=== PATIENT | female | born 1950 | race Caucasian/White ===

== ENCOUNTER → 2017-03-16 | Outpatient (CLI) | payer BC ==
[~2017-03-16] MED LIST: BNC5 PO; HYDR-5688 PO
--- NOTE | 2017-03-19 13:17 | MAMMOGRAPHY REPORT ---
BILATERAL DIGITAL SCREENING MAMMOGRAM WITH CAD: 03/16/2017 CLINICAL HISTORY: Routine screening. Patient has no complaints. TECHNIQUE: Current study was also evaluated with a Computer Aided Detection (CAD) system. Bilateral CC and MLO views were obtained. COMPARISON: Comparison is made to exams dated: 03/14/2016 mammogram, 03/11/2015 mammogram, 03/10/2014 m ammogram, 03/05/2013 mammogram, 03/04/2012 mammogram, and 02/27/2011 mammogram - [facility] enter. BREAST COMPOSITION: There are scattered areas of fibroglandular density in both breasts. FINDINGS: There is a 10 mm mass seen within the right subareolar breast which may be increased dmitriy red to prior exams. Recommend spot compression tomosynthesis views and possible breast ultrasound fo r further evaluation. The remainder of both breasts are stable compared to prior exams, without suspicious masses, calcific ations, or areas of architectural distortion noted. IMPRESSION: ACR BI-RADS CATEGORY 0: INCOMPLETE EVALUATION: NEED ADDITIONAL IMAGING EVALUATION Right subareolar breast mass, for which additional imaging evaluation is recommended. The patient wi ll be called to schedule an appointment. Approximately 10% of breast cancers are not detected with mammography. A negative mammographic report should not delay biopsy if a clinically suggestive mass is present. Pearl Boyle M.D. /:03/16/2017 16:49:16 [employer] Supervisor: Brooke PASTOR(Keila)(Omar), [facility] letter sent: Addl Imaging 0 BI-RADS Code: ACR BI-RADS Category 0: Incomplete Evaluation: Need Additional Imaging Evaluation
== END | disposition home or self-care (01) ==
LOC: C.MAMM 09:14
PROVIDERS: ATTEND Obstetrics & Gynecology
DX: Z12.31 Encounter for screening mammogram for malignant neoplasm of breast (principal); N63 Unspecified lump in breast

== ENCOUNTER → 2017-03-26 | Outpatient (CLI) | payer BC ==
--- NOTE | 2017-03-26 13:13 | MAMMOGRAPHY REPORT ---
UNILATERAL RIGHT DIGITAL DIAGNOSTIC MAMMOGRAM TOMOSYNTHESIS AND TARGETED RIGHT ULTRASOUND: 03/26/2017 CLINICAL HISTORY: 66-year-old woman called back from screening mammography for a right subareolar otto ast mass. No family history of breast cancer. TECHNIQUE: Spot compression right CC and MLO 2-D digital and tomosynthesis images were obtained. COMPARISON: Comparison is made to exams dated: 03/16/2017 mammogram, 03/14/2016 mammogram, 03/11/2015 ma mmogram, 03/10/2014 mammogram, 03/05/2013 mammogram, and 03/04/2012 mammogram - [facility]ter. BREAST COMPOSITION: The tissue of the right breast is almost entirely fatty. FINDINGS: There is persistence of a 9.9 x 8.4 x 10.0 mm mass with indistinct borders in the anterior subareolar right breast. No associated architectural distortion or microcalcification. Further iam luation with ultrasound was performed. There are a few benign round calcifications and mild vascular calcifications within the right breast. Targeted ultrasound was performed in the anterior right breast. In the 12:00 periareolar/subareolar right breast, there is a lobulated vascular mass measuring 9.6 x 7.0 x 9.5 mm. In the antiradial niels ne, a tubular anechoic duct is seen coursing to and from this mass, suggesting it may be of intraduct al origin. Given the solid nature, definitive characterization with tissue sampling is recommended. IMPRESSION: ACR BI-RADS CATEGORY 4B: INTERMEDIATE SUSPICION FOR MALIGNANCY, TARGETED ULTRASOUND ACR BI-RADS CATEGORY 4B: INTERMEDIATE SUSPICION FOR MALIGNANCY Ultrasound-guided core biopsy is recommended for a possible intraductal 10 mm mass in the 12:00 peria reolar/subareolar right breast. These results and recommendations were discussed with the patient at the time of the exam. She tenta tively scheduled the biopsy prior to leaving our department. Approximately 10% of breast cancers are not detected with mammography. A negative mammographic report should not delay biopsy if a clinically suggestive mass is present. Emily Herzog M.D. ay/:03/26/2017 08:41:41 General Superintendent: Daisy Alvarenga, [facility] letter sent: Abnormal 4/5 BI-RADS Code: ACR BI-RADS Category 4B: Intermediate Suspicion For Malignancy Ultrasound BI-RADS: ACR BI-RADS Category 4B: Intermediate Suspicion For Malignancy
== END | disposition home or self-care (01) ==
LOC: C.MAMM 08:03
PROVIDERS: ATTEND Obstetrics & Gynecology
DX: N63 Unspecified lump in breast (principal)

== ENCOUNTER → 2017-04-03 | Outpatient (CLI) | payer BC ==
--- NOTE | 2017-04-03 09:37 | Discharge Instructions ---
Discharge Instructions Procedure Procedure Date: Apr 03, 2017. Reason for visit: Right Mass. Discharge Discharge Date: Apr 03, 2017. Discharge Diagnosis: post right breast ultrasound guided core biopsy Instructions Activity Recommendations: Additional Limitations (see below) Return to School/Work: no limitations Recommended Home Diet: No Limitations Provider Instructions: ACTIVITY RECOMMENDATIONS: * No lifting, pushing, pulling or exercising the affected side for three days. RETURN TO SCHOOL/WORK: * You may return to work/school after the procedure, but do not perform any strenuous activities for 24 to 48 hours. MEDICATIONS: * Tylenol (two 325 mg) every four to six hours if needed for mild pain (if not allergic to Tylenol). DIET: * Resume previous diet. SPECIAL CARE INSTRUCTIONS: * Keep biopsy site dry for 24 hours. May shower after 24 hours, but do not soak (bathe) incision. * May remove Tegaderm (plastic patch) tomorrow AFTER showering. * Leave the steri-strips on for one week. Allow the steri-strips to fall off by themselves. If not off after one week, you may remove them. You may place a Bandaid crosswise over the strips, if desired. * Apply ice 10 minutes on and 10 minutes off as needed. * Wear a bra at bedtime to sleep more comfortably for 2-3 days. * Your referring physician should have the results after approximately 5 to 7 business days. * Call for unusual bleeding, fever, drainage, etc or if you have any questions call [phone] during normal business hours or after hours call Dr Herzog, . FOLLOW UP VISIT: Follow-up with Referring Physician as scheduled. Allergies Coded Allergies: No Known Allergies (Unverified , 04/10/14) Ash Lundberg Recommendations: Call your doctor if: * Temperature above 101 degrees * Pain not relieved by pain medicine ordered * There is increased drainage or redness from any incision * You have any unanswered questions or concerns. Your Doctors Instructions noted above were prepared by provider Emily Herzog. Patient Signature Section: Patient Instructions Signature Page Nayeli ZamudioWallace Patient (or Guardian) Signature/Date: I have read and understand the instructions given to me by my caregivers. Caregiver/RN/Doctor Signature/Date: The above-named patient and/or guardian has received patient instructions on this date. + Original Patient Signature Page (only) stays with chart. Please make copy for patient.
--- NOTE | 2017-04-03 14:15 | MAMMOGRAPHY REPORT ---
UNILATERAL RIGHT DIGITAL DIAGNOSTIC MAMMOGRAM TOMOSYNTHESIS: 04/03/2017 CLINICAL HISTORY: Status post ultrasound-guided core needle biopsy of an indeterminate 9.6 mm mass in the 12:00 periareolar right breast. Please refer to the report from right breast ultrasound guided core biopsy performed at the same time for full detail. IMPRESSION: POST PROCEDURE IMAGING FOR MARKER PLACEMENT Please refer to the report from right breast ultrasound guided core biopsy performed at the same time for full detail. Approximately 10% of breast cancers are not detected with mammography. A negative mammographic report should not delay biopsy if a clinically suggestive mass is present. Emily Herzog M.D. ay/:04/03/2017 09:38:48 Quality Control Checker: Brooke ETIENNE)(M), [facility] BI-RADS Code: Post Procedure Imaging For Marker Placement
--- NOTE | 2017-04-03 14:15 | MAMMOGRAPHY REPORT ---
THIS REPORT HAS BEEN AMENDED. ULTRASOUND GUIDED BIOPSY RIGHT BREAST: 04/03/2017 CLINICAL HISTORY: Lobulated solid 9 mm mass in the subareolar/12:00 periareolar right breast. Rajat yu presents for ultrasound-guided core biopsy. COMPARISON: Comparison is made to exams dated: 03/26/2017 ultrasound, 03/26/2017 mammogram, 03/16/2017 m ammogram, 03/14/2016 mammogram, 03/11/2015 mammogram, and 03/10/2014 mammogram - [facility] enter. PATIENT CONSENT: The procedure, risks and benefits were discussed with the patient and informed writt en consent was obtained. Specific risks to this procedure include: bleeding, infection, puncture of a djacent structure, nontarget biopsy, sampling error, pain, metal allergy and medication reaction. PROCEDURE DESCRIPTION: A time out was performed and the right breast was agreed as the site of biopsy . The skin was prepped and draped in the usual sterile fashion. The solid mass in the 12:00 periareol ar right breast was chosen as the target for biopsy. Subcutaneous and intraparenchymal 1% buffered li docaine was administered as local anesthesia. A skin incision was made. Through the incision, 4 samp les were taken with a 14 gauge Achieve biopsy device. A metallic marker was placed at the biopsy site . Hemostasis was achieved after manual compression. The patient tolerated the procedure well and ther e was no immediate complication. The samples were sent to the pathology department in an appropriate ly labeled container. Post procedure right CC and ML tomosynthesis images were obtained. There is a new ribbon-shaped meta llic biopsy marker within the mass in the anterior 12:00 periareolar right breast. No significant po stbiopsy hematoma is seen. IMPRESSION: ULTRASOUND GUIDED BIOPSY Status post ultrasound guided core biopsy of an indeterminate solid mass in the 12:00 periareolar rig ht breast, with biopsy marker placed at the site. The patient will receive notification of the biopsy results from her referring physician. Emily Herzog M.D. ay/:04/03/2017 13:22:09 Robotic Machine Tender Production: Brooke ETIENNE)(Omar), [facility] AMENDMENT: 04/11/2017 Emily Herzog M.D. Pathology results from the ultrasound-guided core biopsy in the right 12:00 anterior breast yielded a n intraductal papillary lesion with abundant myoepithelial cells. Scattered microcalcifications note d. No areas worrisome for ADH, DCIS are identified. The pathology results are concordant with the i maging appearance. However, given that this mass had been increasing slowly mammographically, surgic al consultation for consideration of surgical excision is recommended.
== END | disposition home or self-care (01) ==
LOC: C.MAMM 08:33
PROVIDERS: ATTEND Obstetrics & Gynecology
DX: N60.81 Other benign mammary dysplasias of right breast (principal); R92.0 Mammographic microcalcification found on diagnostic imaging of breast

== ENCOUNTER → 2017-05-15 | Day surgery (SDC) | payer BC ==
[2017-04-27 13:34] VITALS: Ht 162.6 cm; Wt 63.6 kg
[~2017-05-15] VITALS: Ht 162.6 cm; Wt 63.6 kg
[~2017-05-15] MED LIST changes: +ATROPINE SULFATE 0.1 MG/ML 5ML SYR IV PRN; +BUPIVACAINE 0.5 % 5 MG/1 ML MPF 30ML VIAL ONE; +CEFAZOLIN 2000 MG/60 ML D5W IV SCH; +EpHEDrine SULFATE INJ 50 MG/ML AMP IV PRN; +FENTANYL CITRATE INJ 50 MCG/1 ML 2 ML VIAL IV PRN; +FENTANYL CITRATE INJ 50 MCG/1 ML 2 ML VIAL ONE; +HYDROCODONE/ACETAMOPHEN 5/325MG TAB PO PRN; +LACTATED RINGER'S 1000ML 1,000 ML IV SCH; +LIDOCAINE HCL 1% 20 ML VIAL ONE; +LIDOCAINE HCL 2% 2 ML VIAL (20MG/ML) ONE; +MIDAZOLAM HCL 1 MG/ML 2ML VIAL ONE; +ONDANSETRON INJ 2 MG/ML 2 ML VIAL IV PRN; +ONDANSETRON INJ 2 MG/ML 2 ML VIAL ONE; +PROPOFOL IV EMULSION 10 MG/ML 20 ML VIAL IV ONE; +SODIUM CHLORIDE 0.9% 1000ML 1,000 ML IV SCH
--- NOTE | 2017-05-15 11:57 | History & Physical Bridge - SC ---
H&P Re-Evaluation Bridge Note: I have examined the patient, reviewed the History & Physical and in the interval since the performance of the History & Physical I have noted the following changes of clinical significance: No changes noted
--- NOTE | 2017-05-15 12:01 | Discharge Instructions-SurgCtr ---
Discharge Instructions Date of Service May 15, 2017. Visit Reason for Visit: Right Breast Papilloma Discharge Discharge Diagnosis / Problem: papilloma Rt breast Discharge Goals Goal(s): Decrease discomfort, Improve function, Improve disease control Activity Recommendations Activity Limitations: as noted below Lifting Limitations: gradually increase as tolerated Exercise/Sports Limitations: until after follow-up appointment May Resume Sexual Activity: when tolerated Shower/Bathe: keep incision dry (for 2 days then may shower) Driving or Machine Use: resume 1 day after discharge SPECIAL CARE INSTRUCTIONS: * Cover incisions and change daily for comfort/drainage. * Leave steri strips in place * May use ibuprofen for pain as tolerated. * Expect some swelling and bruising. Call your doctor if: * Temperature above 101 degrees * Pain not relieved by pain medicine ordered * There is increased drainage or redness from any incision * You have any unanswered questions or concerns [phone]. FOLLOW UP VISIT: If not already scheduled, please call the office for a follow-up visit. for 2 weeks- no sutures to remove OFFICE PHONE NUMBER: Dr. Fleming Office Anesthesia . Post Anesthesia Instructions: If you have had General Anesthesia or IV Sedation: * Do not drive today. * Resume driving when surgeon permits. * Do not make important decisions or sign legal documents today. * Call surgeon for: 1. Temperature elevations greater than 101 degrees F. 2. Uncontrollable pain. 3. Excessive bleeding. 4. Persistent nausea and vomiting. 5. Medication intolerance (nausea, vomiting or rash). * For nausea and vomiting use only clear liquids such as: tea, soda, bouillon until nausea subsides, then gradually increase diet as tolerated. * If you have any concerns or questions, call your surgeon's office. If physician is unavailable and it is an emergency, call 911 or go to the nearest emergency room. . Diet Recommendations Home Diet: resume previous diet Pending Studies Studies pending at discharge: no Medical Emergencies . Who to Call and When: Medical Emergencies: If at any time you feel your situation is an emergency, please call 911 immediately. . Non-Emergent Contact Non-Emergency issues call your: Primary Care Provider, Surgeon . . "Provider Documentation" section prepared by Tavo Fleming. .
[2017-05-15 12:50] VITALS: TEMP 36.6
--- NOTE | 2017-05-15 13:10 | MAMMOGRAPHY REPORT ---
SPECIMEN: 05/15/2017 CLINICAL HISTORY: Specimen radiograph. Please refer to the report from right breast ultrasound performed at the same for full detail regardi ng skin marking prior to surgery. IMPRESSION: SPECIMEN Please refer to the report from right breast ultrasound performed at the same for full detail regardi ng skin marking prior to surgery. Emily Herzog M.D. ay/:05/15/2017 12:31:53 Machine Chocolate Molder: Daisy Alvarenga, [facility]
--- NOTE | 2017-05-15 13:10 | MAMMOGRAPHY REPORT ---
ULTRASOUND OF RIGHT BREAST: 05/15/2017 CLINICAL HISTORY: Biopsy proven papilloma in the 12:00 anterior subareolar right breast which had bee n slowly enlarging based on prior mammograms. Patient presents for surgical excision. COMPARISON: Comparison is made to exams dated: 04/03/2017 mammogram, 04/03/2017 ultrasound biopsy, 03/15 ultrasound, 03/26/2017 mammogram, 03/16/2017 mammogram, and 03/14/2016 mammogram - [facility]. FINDINGS: Prior to surgical excision of a biopsy proven papilloma in the 12:00 anterior subareolar r ight breast, targeted ultrasound was performed over the biopsied mass for skin marking purposes. Maggie otations were made on the right breast directly above the mass, which is located 1 cm deep to the ester mis. This information was discussed with the operating surgeon prior to surgery. The specimen radiograph demonstrates a lobulated mass and internal ribbon-shaped biopsy marker clip, compatible with successful surgical excision. IMPRESSION: Status post preoperative skin marking for localization purposes during surgical excision of a papillo ma in the 12:00 anterior right breast. The specimen radiograph includes the intended abnormalities. The patient will receive notification of final pathology results from her referring physician. Emily Herzog M.D. ay/:05/15/2017 12:35:06 Agronomy Internship: Daisy Alvarenga, [facility] BI-RADS Code: n/a
[2017-05-15 13:12] VITALS: BP 146/81; PULSE 60; O2SAT 100
--- NOTE | 2017-05-15 13:22 | Anesthesia Progress Nt - [facility] ---
Anesthesia Post Op Note Date & Time May 15, 2017 at 13:22 Vital Signs Pain Intensity: 0 Vital Signs Past 12 Hours Date Time Temp Pulse Resp B/P (MAP) Pulse Ox O2 Delivery O2 Flow Rate FiO2 05/15/17 13:12 60 16 146/81 (102) 100 Room Air 05/15/17 12:50 36.6 70 20 125/74 (91) 98 Room Air 05/15/17 10:33 36.7 70 16 177/88 (117) 99 Room Air Notes Mental Status: alert / awake / arousable, participated in evaluation Pt Amnestic to Procedure: Yes Nausea / Vomiting: adequately controlled Pain: adequately controlled Airway Patency, RR, SpO2: stable & adequate BP & HR: stable & adequate Hydration State: stable & adequate Anesthetic Complications: no major complications apparent
--- NOTE | 2017-05-15 13:48 | OPERATIVE REPORT ---
DATE OF OPERATION: 05/15/2017 NAME OF OPERATION: Excision of right breast mass. PREOPERATIVE DIAGNOSIS: Right breast mass. POSTOPERATIVE DIAGNOSIS: Same. STAFF SURGEON: Dr. Fleming. ANESTHESIA: 1% plain lidocaine with sedation. PROCEDURE IN DETAIL: The patient was brought in the operating room and placed on the operating table in supine position. Her right breast was prepped and draped in usual fashion. She had ultrasound marking in the breast center prior to coming to the operating room. Using 1% plain lidocaine, skin and subcutaneous tissue in the upper part of the right areola were anesthetized. Incision was made around the areola from approximately 10 o'clock to 2 o'clock, dissecting down into the breast tissue, excising the tissue, sending it for mammography. The tissue was marked with a long silk suture lateral, short silk suture superior. The clip was within the tissue. During the mammography, I did take additional superior tissue with blue dye on the new outer margin. Deep tissue was reapproximated using 2-0 plain catgut suture, then the skin reapproximated using subcuticular 5-0 Monocryl with Steri-Strips. The patient was transferred to recovery room in stable condition. I attest to the content of the Intraoperative Record and any orders documented therein. Any exception s are noted below.
== END | disposition home or self-care (01) ==
LOC: X.SURG 10:25
PROVIDERS: ATTEND Surgery
DX: D24.9 Benign neoplasm of unspecified breast (principal); I10 Essential (primary) hypertension; Z86.2 Personal history of diseases of the blood and blood-forming organs and certain disorders involving the immune mechanism; Z90.89 Acquired absence of other organs; Z82.49 Family history of ischemic heart disease and other diseases of the circulatory system; Z83.42 Family history of familial hypercholesterolemia; Z87.891 Personal history of nicotine dependence

== ENCOUNTER → 2017-06-29 | Outpatient (CLI) | payer BC ==
[~2017-06-29] MED LIST changes: -ATROPINE SULFATE 0.1 MG/ML 5ML SYR IV PRN; -BUPIVACAINE 0.5 % 5 MG/1 ML MPF 30ML VIAL ONE; -CEFAZOLIN 2000 MG/60 ML D5W IV SCH; -EpHEDrine SULFATE INJ 50 MG/ML AMP IV PRN; -FENTANYL CITRATE INJ 50 MCG/1 ML 2 ML VIAL IV PRN; -FENTANYL CITRATE INJ 50 MCG/1 ML 2 ML VIAL ONE; -HYDROCODONE/ACETAMOPHEN 5/325MG TAB PO PRN; -LACTATED RINGER'S 1000ML 1,000 ML IV SCH; -LIDOCAINE HCL 1% 20 ML VIAL ONE; -LIDOCAINE HCL 2% 2 ML VIAL (20MG/ML) ONE; -MIDAZOLAM HCL 1 MG/ML 2ML VIAL ONE; -ONDANSETRON INJ 2 MG/ML 2 ML VIAL IV PRN; -ONDANSETRON INJ 2 MG/ML 2 ML VIAL ONE; -PROPOFOL IV EMULSION 10 MG/ML 20 ML VIAL IV ONE; -SODIUM CHLORIDE 0.9% 1000ML 1,000 ML IV SCH
== END | disposition home or self-care (01) ==
LOC: C.PAPS 14:14
PROVIDERS: ATTEND Obstetrics & Gynecology
DX: Z12.4 Encounter for screening for malignant neoplasm of cervix (principal)

== ENCOUNTER → 2017-07-24 | Outpatient (CLI) | payer BC | END | disposition home or self-care (01) | LOC: C.MAMM 11:10 | PROVIDERS: ATTEND Family Medicine | DX: M85.80 Other specified disorders of bone density and structure, unspecified site (principal); E28.319 Asymptomatic premature menopause ==

== ENCOUNTER 2024-09-10 20:50 | Observation (INO) ==
--- NOTE | 2024-09-10 21:10 | Emergency Department Note ---
Impression & Plan Atrial fibrillation with rapid ventricular response ED Provider Note Provider: James Venegas MD CHIEF COMPLAINT: Palpitations HISTORY OF PRESENT ILLNESS: Patient is a 73-year-old female history of hypertension presenting here today with stating in the past hour she started feel palpitations and racing heart rate. States in the past maybe once a month she has had a few seconds of palpitations but nothing like this. No history of A-fib or arrhythmia noted. Has had some anxiety and hypertensive issues and her doctor to have her propranolol at 1 time. Patient denies chest pain or shortness of breath. Denies fainting or syncope. Denies trauma. Denies recent illness. Denies recent GI upset or significance of caffeine or alcohol in the recent days. There is a family history of son with A-fib improved with ablation in the past but no other family history of A-fib recollected by the patient. Patient denies any significant cardiac history PAST MEDICAL HISTORY: As noted above MEDICATIONS: Reviewed home medications SOCIAL HISTORY: , no regular alcohol use PHYSICAL EXAM: GENERAL: alert and oriented in no acute distress on stretcher Head: normocephalic and atraumatic EYES: No injection, discharge or icterus. NECK: Trachea midline. ENT: Mucous membranes pink and moist. LUNGS: Airway patent. No retractions. Breath sounds clear HEART: Tachycardic irregular regular rate and rhythm. No chest wall tenderness ABDOMEN: Soft and non-tender, without guarding or rebound. SKIN: Acyanotic, warm, dry, without rashes EXTREMITIES: Without swelling, tenderness or deformity NEUROLOGICAL: No focal deficits. No aphasia. No facial droop or slurred speech. Ambulatory. EK beats manage ablation at ventricular spots. No acute ST segment elevation with some diffuse slight ST depression. QTc 455. CONTINUOUS CARDIAC MONITORING: was ordered and showed a heart rate of bpm in atrial fibrillation Patient's laboratory studies and imaging reviewed. Differential includes Premature contractions, electrolyte abnormality, cardiac dysrhythmia, thyroid dysfunction, pulmonary embolism, infection, gastrointestinal, as well as other pathologies. IMPRESSION/MEDICAL DECISION MAKING: Sounds like new onset A-fib. In A-fib RVR. No significant stimulant usage or illness unsure what provoked this. Basic labs/electrolytes as well as COVID test and TSH sent. Given to metoprolol here initially to see if can affect some rate control. Not hypoxic and not having active chest pain although EKG does show some ST pression likely rate related. No evidence clinically of heart failure. Some rate control with several doses of IV metoprolol here but suboptimal. No significant lecture light abnormality signs of acute troponin elevation. No LFT abnormalities with troponin 6.3. Negative COVID flu RSV testing. No anemia or significant leukocytosis or thrombocytopenia noted. Unclear what exactly prompted her A-fib to start this evening. Difficult to rate control and will start on diltiazem drip as well as heparin drip for anticoagulation. Discussed with patient and given difficulty with rate control will bring into the hospital for further care and cardiac evaluation. Will discuss with the hospitalist team. DIAGNOSIS: A-fib RVRnew onset DISPOSITION: Hospitalist will evaluate Patient was agreeable with this plan. Critical Care I have personally spent 31 minutes of critical care time in the direct management of this patient. This includes bedside care, interpretation of diagnostic studies, and testing, discussion with consultants, patient, and other required patient management activities. These 31 minutes is in excess of all separately billable procedures. Past Med/Surg History Problem List (Updated 09/10/24 @ 21:14 by James Venegas M.D.) Atrial fibrillation with rapid ventricular response (Acute) Hematuria Abdominal pain (Acute) Appendicitis (Acute 04/11/14) Hyphema Medical History (Updated 09/10/24 @ 21:14 by James Venegas M.D.) History of anemia Hx of abnormal mammogram Surgical History S/P tonsillectomy and adenoidectomy H/O neck surgery S/P dilation and curettage S/P colonoscopy H/O breast surgery S/P appendectomy Family History Father Diabetes Dyslipidemia Hypertension Myocardial infarction Mother Hypertension Myocardial infarction Sister Hypertension Social History Smoking Status: Never smoker Do You Dip or Chew Tobacco: No; Preferred Language: Kittitian Feels Safe at Home: Yes Allergies Allergies Allergy/AdvReac Type Severity Reaction Status Date / Time lisinopril AdvReac Mild COUGH Verified 09/10/24 23:06 oxycodone AdvReac Mild SICK Verified 09/10/24 23:06 Home Meds Home Medications Medication Instructions Recorded Confirmed olmesartan 5 mg tablet 5 mg PO DAILY 07/09/19 09/10/24 rosuvastatin 10 mg tablet 5 mg PO DAILY 09/06/21 09/10/24 Results & Data (ED) Vital Signs Vital Signs - 24 hr 09/10/24 20:54 09/10/24 21:00 09/10/24 21:05 Temperature 36.5 C Temperature Source Temporal Artery Scan Pulse Rate 156 H 135 H Respiratory Rate 17 Blood Pressure 181/120 H Blood Pressure Mean 140 Pulse Oximetry 95 97 Oxygen Delivery Method Room Air Room Air Sepsis Recent Fever Within 48 Hours No Sepsis New/Unexplained Change in Mental Status No Sepsis Action Taken by Nursing No Action Required 09/10/24 21:15 09/10/24 21:30 09/10/24 22:02 Temperature Temperature Source Pulse Rate 152 H 120 H 122 H Respiratory Rate Blood Pressure 148/120 H 148/111 H 120/95 Blood Pressure Mean Pulse Oximetry Oxygen Delivery Method Sepsis Recent Fever Within 48 Hours Sepsis New/Unexplained Change in Mental Status Sepsis Action Taken by Nursing 09/10/24 22:17 09/10/24 22:20 09/10/24 22:45 Temperature Temperature Source Pulse Rate 125 H 123 H 123 H Respiratory Rate Blood Pressure 120/92 120/92 137/106 H Blood Pressure Mean Pulse Oximetry Oxygen Delivery Method Sepsis Recent Fever Within 48 Hours Sepsis New/Unexplained Change in Mental Status Sepsis Action Taken by Nursing Laboratory Data 09/10/24 21:05 09/10/24 21:05 Lab Results 09/10/24 09/10/24 Range/Units 21:05 21:24 WBC 9.18 (4.8-10.8) K/ul RBC 4.60 (4.20-5.40) M/uL Hgb 14.0 (12.0-16.0) g/dl Hct 41.4 (37.0-47.0) % MCV 90.0 (80.0-100.0) fL MCH 30.4 (25.0-34.0) pg MCHC 33.8 (32.0-36.0) g/dL RDW Std Deviation 38.5 (36.4-46.3) fL RDW Coeff of Rosie 11.9 (11.5-14.5) % Plt Count 245 (130-400) K/uL MPV 10.6 (9.4-12.4) fL Immature Gran % (Auto) 0.3 % Neut % (Auto) 57.8 % Lymph % (Auto) 28.4 % [place] % (Auto) 11.1 % Eos % (Auto) 1.4 % Baso % (Auto) 1.0 % Neut # (Auto) 5.30 (1.40-6.50) K/uL Lymph # (Auto) 2.61 (1.20-3.40) K/uL [place] # (Auto) 1.02 H (0.11-0.59) K/uL Eos # (Auto) 0.13 (0.00-0.50) K/uL Baso # (Auto) 0.09 (0.00-0.20) K/uL Immature Gran # (Auto) 0.03 (0.01-0.20) K/uL PT 11.4 (9.0-12.0) Seconds INR 1.1 (0.9-1.1) APTT 24 (21-31) Seconds PTT Ratio 0.9 Sodium 142 (136-145) mmol/L Potassium 3.8 (3.5-5.1) mmol/L Chloride 108 H (98-107) mmol/L Carbon Dioxide 25 (21-32) mmol/L Anion Gap 9 (3-11) BUN 20 (6-23) mg/dl Creatinine 0.67 (0.6-1.2) mg/dl Est Cr Clr Drug Dosing 70.3 ml/min eGFR 91.66 BUN/Creatinine Ratio 29.9 H (10-20) Glucose 139 H (70-99(Fasting)) mg/dl Calcium 10.0 (8.6-10.3) mg/dl Magnesium 2.3 (1.7-2.4) mg/dl Total Bilirubin 0.4 (0.2-1.0) mg/dl AST 21 (13-39) U/L ALT 15 (7-52) U/L Alkaline Phosphatase 77 (34-104) U/L Troponin I High Sens 6.0 (0-14) pg/ml Total Protein 8.2 (6.0-8.3) gm/dl Albumin 5.1 H (3.4-5.0) gm/dl Globulin 3.1 (2.5-4.0) gm/dl Albumin/Globulin Ratio 1.6 (0.9-2) TSH 6.336 H (0.300-4.500) uIu/ml Free T4 0.74 (0.61-1.60) ng/dl SARS-CoV-2 (PCR) NEGATIVE (Negative) Influenza Type A (PCR) Negative (Neg) Influenza Type B (PCR) Negative (Neg) RSV (RT-PCR) Negative (Neg) Administered Medications Diltiazem HCl 125 mg/ Dextrose 125 mls @ 5 mls/hr IV .Q24H [facility]; Protocol Stop: 10/10/24 22:44 Last Admin: 09/10/24 23:21 Dose: 5 mg/hr, 5 mls/hr Documented By: ANDRES Co-signed By: JULIA Heparin Sodium/Dextrose (Heparin Sodium/Dextrose) 25,000 units in 500 mls @ 14 mls/hr IV .Q24H [facility]; Protocol Stop: 10/10/24 23:14 Last Admin: 09/10/24 23:27 Dose: 700 units/hr, 14 mls/hr Documented By: ANDRES Co-signed By: JULIA Discontinued Medications Heparin Sodium (Porcine) (Heparin Sod (Porcine) 1000 Unit/Ml) 4,000 units IV NOW STA Stop: 09/10/24 23:12 Last Admin: 09/10/24 23:26 Dose: 4,000 units Documented By: ANDRES Co-signed By: JULIA Metoprolol Tartrate (Metoprolol Tartrate 1 Mg/Ml Vial) 5 mg IV NOW STA Stop: 09/10/24 21:09 Last Admin: 09/10/24 21:15 Dose: 5 mg Documented By: FRANK Metoprolol Tartrate (Metoprolol Tartrate 1 Mg/Ml Vial) 5 mg IV NOW STA Stop: 09/10/24 21:33 Last Admin: 09/10/24 22:02 Dose: 5 mg Documented By: FRANK Metoprolol Tartrate (Metoprolol Tartrate 1 Mg/Ml Vial) 5 mg IV NOW STA Stop: 09/10/24 22:14 Last Admin: 09/10/24 22:20 Dose: 5 mg Documented By: FRANK Imaging Data Radiologist's Impression: Chest X-Ray 09/10/24 21:09 Exam(s): XR CXR 1 VIEW EXAM: XR Chest, 1 View CLINICAL HISTORY: Reason for exam: Dysrhythmia, new Afib. TECHNIQUE: Frontal view of the chest. COMPARISON: December 22, 2023 FINDINGS: Lungs: Unremarkable. No consolidation. Pleural space: Unremarkable. No pneumothorax. Heart: Unremarkable. No cardiomegaly. Mediastinum: Unremarkable. Normal mediastinal contour. Bones/joints: Unremarkable. No acute fracture. IMPRESSION: Normal chest x-ray. Electronically signed by: Dane Becker MD 09/11/24 00:01 AM Discharge Plan Visit Data Chief Complaint: Cardiac Assessment Stated Complaint: RACING HEART, IRREGULAR HEART BEAT ED Provider: James Venegas Discharge Problem: Atrial fibrillation with rapid ventricular response Forms Stand Alone [facility] Prescriptions Prescriptions: No Action olmesartan 5 mg tablet 5 mg PO DAILY rosuvastatin 10 mg tablet 5 mg PO DAILY Referrals Referrals: Julius Vargas MD [Primary Care Provider] -
[2024-09-10] MEDS: METOPROLOL TARTRATE 1 MG/ML VIAL IV STA ×3 (21:15→22:20)
[2024-09-10 21:30] LABS: Basophils # (auto) 0.09 K/uL (0.00-0.20); Eosinophils # (auto) 0.13 K/uL (0.00-0.50); Eosinophils % (auto) 1.4 %; Hematocrit (blood only) 41.4 % (37.0-47.0); Immature Granulocytes # (auto) 0.03 K/uL (0.01-0.20); Immature Granulocytes % (auto) 0.3 %; Lymphocytes # (auto) 2.61 K/uL (1.20-3.40); Lymphocytes % (auto) 28.4 %; Mean Corpuscular Hemoglobin 30.4 pg (25.0-34.0); Mean Corpuscular Hgb Conc 33.8 g/dL (32.0-36.0); Mean Platelet Volume 10.6 fL (9.4-12.4); Monocytes # (auto) 1.02 K/uL (0.11-0.59); Monocytes % (auto) 11.1 %; Neutrophils % (auto) 57.8 %; Platelet Count 245 K/uL (130-400); RDW Coefficient of Variation 11.9 % (11.5-14.5); RDW Standard Deviation 38.5 fL (36.4-46.3); White Blood Count 9.18 K/ul (4.8-10.8)
[2024-09-10 21:41] LABS: Albumin Globulin Ratio 1.6 (0.9-2); Albumin Level 5.1 gm/dl (3.4-5.0); BUN Creatinine Ratio 29.9 (10-20); Bilirubin,Total 0.4 mg/dl (0.2-1.0); Creatinine Clr Calc Pharmacy 70.3 ml/min; Globulin 3.1 gm/dl (2.5-4.0); Magnesium 2.3 mg/dl (1.7-2.4); Potassium 3.8 mmol/L (3.5-5.1); Total Protein 8.2 gm/dl (6.0-8.3)
[2024-09-10 21:58] LABS: Thyroid Stimulating Hormone 6.336 uIu/ml (0.300-4.500)
[2024-09-10 21:59] LABS: INR 1.1 (0.9-1.1); Partial Thromboplastin Ratio 0.9; Partial Thromboplastin Time 24 Seconds (21-31); Prothrombin Time 11.4 Seconds (9.0-12.0)
[2024-09-10 22:12] LABS: Influenza A virus by PCR Negative (Neg); Influenza B virus by PCR Negative (Neg); RSV by PCR Negative (Neg); SARS CoV2 RNA(COVID-19) Ceph NEGATIVE (Negative)
[2024-09-10 22:33] LABS: T4 Free Thyroxine 0.74 ng/dl (0.61-1.60)
[2024-09-10] MEDS ORDERED: STAT IV Infusion **Titration per Protocol STA (22:45)
[2024-09-10] MEDS ORDERED: Heparin IV Adult Wt-Based Low-Dose w/ INITIAL Bolus Protocol IV STA (22:45)
[2024-09-10] MEDS ORDERED: HEPARIN SOD (PORCINE) 1000 UNIT/ML IV ONE (23:01)
[2024-09-10] MEDS: dilTIAZem HCL 125 MG in DEXTROSE 5% 100 ML IV SCH (23:21)
[2024-09-10] MEDS: HEPARIN SOD (PORCINE) 1000 UNIT/ML IV STA (23:26)
[2024-09-10] MEDS: HEPARIN SODIUM/DEXTROSE 25,000 UNITS/500 ML BAG IV SCH (23:27)
--- NOTE | 2024-09-10 23:58 | History & Physical Report ---
Date of Service September 10, 2024 History of Present Illness Primary Care Provider: Julius Vargas MD Allergies Allergy/AdvReac Type Severity Reaction Status Date / Time lisinopril AdvReac Mild COUGH Verified 09/10/24 23:06 oxycodone AdvReac Mild SICK Verified 09/10/24 23:06 Home Medications Medication Instructions Recorded Confirmed Type olmesartan 5 mg tablet 5 mg PO DAILY 07/09/19 09/10/24 History rosuvastatin 10 mg tablet 5 mg PO DAILY 09/06/21 09/10/24 History Past Med/Surg History Problem List (Updated 09/10/24 @ 21:14 by James Venegas M.D.) Atrial fibrillation with rapid ventricular response (Acute) Hematuria Abdominal pain (Acute) Appendicitis (Acute 04/11/14) Hyphema Medical History (Updated 09/10/24 @ 21:14 by James Venegas M.D.) History of anemia Hx of abnormal mammogram Surgical History S/P tonsillectomy and adenoidectomy H/O neck surgery S/P dilation and curettage S/P colonoscopy H/O breast surgery S/P appendectomy Family History Father Diabetes Dyslipidemia Hypertension Myocardial infarction Mother Hypertension Myocardial infarction Sister Hypertension Social History Smoking Status: Never smoker Do You Dip or Chew Tobacco: No; Preferred Language: Greek Feels Safe at Home: Yes Results & Data Results & Data Vital Signs (Past 12 Hours) Vital Signs Temp Pulse Resp BP Pulse Ox O2 Del Method 09/10/24 22:45 123 H 137/106 H 09/10/24 22:20 123 H 120/92 09/10/24 22:17 125 H 120/92 09/10/24 22:02 122 H 120/95 09/10/24 21:30 120 H 148/111 H 09/10/24 21:15 152 H 148/120 H 09/10/24 21:05 135 H 09/10/24 21:00 97 Room Air 09/10/24 20:54 36.5 C 156 H 17 181/120 H 95 Room Air Code Status & VTE Plan VTE Prophylaxis Plan VTE Prophylaxis will be ordered: Yes PG Care Time/CCT Total # of Minutes Spent Total Time Spent with Patient: Total time spent is greater than 50% in coordination of care (as documented) at patient's floor/unit and/or counseling patient: Coding Level of Care Code 00589 INT INP/OBS CARE 3/75MIN
--- NOTE | 2024-09-10 23:59 | History & Physical Report ---
Date of Service September 10, 2024 Assessment & Plan (1) Atrial fibrillation with rapid ventricular response: (2) Hypertension: (3) Hyperlipidemia: (4) Hyperglycemia: Plan Atrial fibrillation with RVR/hypertension- The patient will be admitted to telemetry for serial cardiac enzymes, serial EKG's, cardiac rhythm monitoring and a 2-D echocardiogram with Dopplers. Status post Lopressor 5 mg IV x 3 from the ED with no significant improvement Then placed on Cardizem drip per protocol Cardizem 30 mg p.o. now, and then 4 times daily Given Klor-Con 40 mEq p.o. for potassium 3.8 Heparin drip per protocol Hold olmesartan Consult cardiology Hyperglycemia- Glucose 139 on admission Check hemoglobin A1c Hyperlipidemia- Continue rosuvastatin 5 mg daily Check a fasting lipid panel History of Present Illness Chief Complaint: The patient presents to the emergency department, with her , due to sudden onset of persistent palpitations that began about 1 hour prior to arrival. Primary Care Provider: Julius Vargas MD The patient is a 73-year-old female with a past medical history including hypertension and hyperlipidemia, who reports having had a few episodes of brief palpitations of a few seconds duration in the past. She reports that about 1 hour prior to arrival, she had the acute onset of persistent palpitations, and presents to the ED for assessment. EKG upon arrival showed atrial fibrillation with RVR at a rate 153 bpm. She denies any recent travels or sick exposures. She denies any change in her usual dietary intake. Allergies Allergy/AdvReac Type Severity Reaction Status Date / Time lisinopril AdvReac Mild COUGH Verified 09/10/24 23:06 oxycodone AdvReac Mild SICK Verified 09/10/24 23:06 Home Medications Medication Instructions Recorded Confirmed Type olmesartan 5 mg tablet 5 mg PO DAILY 07/09/19 09/10/24 History rosuvastatin 10 mg tablet 5 mg PO DAILY 09/06/21 09/10/24 History Past Med/Surg History Problem List (Updated 09/11/24 @ 04:39 by Jan Rebolledo MD) Hyperglycemia Atrial fibrillation with rapid ventricular response (Acute) Hematuria Abdominal pain (Acute) Appendicitis (Acute 04/11/14) Hyphema Medical History (Updated 09/11/24 @ 04:39 by Jan Rebolledo MD) Hyperlipidemia History of anemia Hx of abnormal mammogram Surgical History S/P tonsillectomy and adenoidectomy H/O neck surgery S/P dilation and curettage S/P colonoscopy H/O breast surgery S/P appendectomy Family History Father Diabetes Dyslipidemia Hypertension Myocardial infarction Mother Hypertension Myocardial infarction Sister Hypertension Social History Smoking Status: Unknown if ever smoked Do You Dip or Chew Tobacco: No; Hx Alcohol Use: Yes Alcohol type: wine Hx Substance Use: No Preferred Language: Croatian Communication Ability: Effective Nib Inspector Required: No Beliefs That Will Affect Care: None Current Living Situation: Spouse Other Information That Helps Us Care for You: No Feels Safe at Home: Yes Safety Concerns: Feels Safe At This Time Assistive Devices: Glasses Assistive Devices Comment: reading glasses Review of Systems Review of Systems: The patient denies chest pain, cough, lower extremity swelling, sore throat, fevers, chills, sweats, weight change, fatigue, nausea, vomiting, diarrhea , constipation, abdominal pain, pelvic pain, blood in urine or stool, dysuria, urinary frequency or urgency, lightheadedness, dizziness, headache, memory loss, loss of consciousness, rash, abnormal bruising or bleeding, imbalance, focal or generalized weakness, numbness or tingling in arms or legs, generalized arthralgias or myalgias, back or neck pain, or night sweats. The review of systems is otherwise negative other than for that already noted above, and at least 10 systems have been reviewed. Physical Exam Physical Exam: The patient is awake, alert and oriented 3, well developed and well nourished, normocephalic and atraumatic, lying in bed and in no acute distress. HEENT--PERRL, EOMI, mucous membranes and oropharynx normal Neck--supple. No JVD. No bruits. Thyroid normal, trachea midline, no adenopathy. Heart--irregularly irregular and tachycardic. No murmurs, rubs or gallops. Lungs--clear bilaterally, no respiratory distress, no accessory muscle use. Abdomen--normal bowel sounds and soft. Nontender. Nondistended, no hernias or masses, no organomegaly. Extremities--No edema. Dermatologic--normal skin turgor, normal color, no abnormal lymph nodes, no rash. Neurologic--cranial nerves II through XII grossly intact. Rheumatologic--normal range of motion. Psychiatric--normal affect. Results & Data Results & Data Vital Signs (Past 12 Hours) Vital Signs Temp Pulse Resp BP Pulse Ox O2 Del Method 09/10/24 22:45 123 H 137/106 H 09/10/24 22:20 123 H 120/92 09/10/24 22:17 125 H 120/92 09/10/24 22:02 122 H 120/95 09/10/24 21:30 120 H 148/111 H 09/10/24 21:15 152 H 148/120 H 09/10/24 21:05 135 H 09/10/24 21:00 97 Room Air 09/10/24 20:54 36.5 C 156 H 17 181/120 H 95 Room Air Laboratory Results Laboratory Results WBC 9.18 K/ul (4.8-10.8) 09/10/24 21:05 RBC 4.60 M/uL (4.20-5.40) 09/10/24 21:05 Hgb 14.0 g/dl (12.0-16.0) 09/10/24 21:05 Hct 41.4 % (37.0-47.0) 09/10/24 21:05 MCV 90.0 fL (80.0-100.0) 09/10/24 21:05 MCH 30.4 pg (25.0-34.0) 09/10/24 21:05 MCHC 33.8 g/dL (32.0-36.0) 09/10/24 21:05 RDW Std Deviation 38.5 fL (36.4-46.3) 09/10/24 21:05 RDW Coeff of Rosie 11.9 % (11.5-14.5) 09/10/24 21:05 Plt Count 245 K/uL (130-400) 09/10/24 21:05 MPV 10.6 fL (9.4-12.4) 09/10/24 21:05 Immature Gran % (Auto) 0.3 % 09/10/24 21:05 Neut % (Auto) 57.8 % 09/10/24 21:05 Lymph % (Auto) 28.4 % 09/10/24 21:05 [place] % (Auto) 11.1 % 09/10/24 21:05 Eos % (Auto) 1.4 % 09/10/24 21:05 Baso % (Auto) 1.0 % 09/10/24 21:05 Neut # (Auto) 5.30 K/uL (1.40-6.50) 09/10/24 21:05 Lymph # (Auto) 2.61 K/uL (1.20-3.40) 09/10/24 21:05 [place] # (Auto) 1.02 K/uL (0.11-0.59) H 09/10/24 21:05 Eos # (Auto) 0.13 K/uL (0.00-0.50) 09/10/24 21:05 Baso # (Auto) 0.09 K/uL (0.00-0.20) 09/10/24 21:05 Immature Gran # (Auto) 0.03 K/uL (0.01-0.20) 09/10/24 21:05 PT 11.4 Seconds (9.0-12.0) 09/10/24 21:05 INR 1.1 (0.9-1.1) 09/10/24 21:05 APTT 24 Seconds (21-31) 09/10/24 21:05 PTT Ratio 0.9 09/10/24 21:05 Sodium 142 mmol/L (136-145) 09/10/24 21:05 Potassium 3.8 mmol/L (3.5-5.1) 09/10/24 21:05 Chloride 108 mmol/L (98-107) H 09/10/24 21:05 Carbon Dioxide 25 mmol/L (21-32) 09/10/24 21:05 Anion Gap 9 (3-11) 09/10/24 21:05 BUN 20 mg/dl (6-23) 09/10/24 21:05 Creatinine 0.67 mg/dl (0.6-1.2) 09/10/24 21:05 Est Cr Clr Drug Dosing 70.3 ml/min 09/10/24 21:05 eGFR 91.66 09/10/24 21:05 BUN/Creatinine Ratio 29.9 (10-20) H 09/10/24 21:05 Glucose 139 mg/dl (70-99(Fasting)) H 09/10/24 21:05 Calcium 10.0 mg/dl (8.6-10.3) 09/10/24 21:05 Magnesium 2.3 mg/dl (1.7-2.4) 09/10/24 21:05 Total Bilirubin 0.4 mg/dl (0.2-1.0) 09/10/24 21:05 AST 21 U/L (13-39) 09/10/24 21:05 ALT 15 U/L (7-52) 09/10/24 21:05 Alkaline Phosphatase 77 U/L (34-104) 09/10/24 21:05 Troponin I High Sens 6.0 pg/ml (0-14) 09/10/24 21:05 Total Protein 8.2 gm/dl (6.0-8.3) 09/10/24 21:05 Albumin 5.1 gm/dl (3.4-5.0) H 09/10/24 21:05 Globulin 3.1 gm/dl (2.5-4.0) 09/10/24 21:05 Albumin/Globulin Ratio 1.6 (0.9-2) 09/10/24 21:05 TSH 6.336 uIu/ml (0.300-4.500) H 09/10/24 21:05 Free T4 0.74 ng/dl (0.61-1.60) 09/10/24 21:05 SARS-CoV-2 (PCR) NEGATIVE (Negative) 09/10/24 21:24 Influenza Type A (PCR) Negative (Neg) 09/10/24 21:24 Influenza Type B (PCR) Negative (Neg) 09/10/24 21:24 RSV (RT-PCR) Negative (Neg) 09/10/24 21:24 Impressions Chest X-Ray 09/10/24 21:09 Exam(s): XR CXR 1 VIEW EXAM: XR Chest, 1 View CLINICAL HISTORY: Reason for exam: Dysrhythmia, new Afib. TECHNIQUE: Frontal view of the chest. COMPARISON: December 22, 2023 FINDINGS: Lungs: Unremarkable. No consolidation. Pleural space: Unremarkable. No pneumothorax. Heart: Unremarkable. No cardiomegaly. Mediastinum: Unremarkable. Normal mediastinal contour. Bones/joints: Unremarkable. No acute fracture. IMPRESSION: Normal chest x-ray. Electronically signed by: Dane Becker MD 09/11/24 00:01 AM Code Status & VTE Plan Code Status Full code VTE Prophylaxis Plan VTE Prophylaxis will be ordered: Yes PG Care Time/CCT Total # of Minutes Spent Total Time Spent with Patient: Total time spent is greater than 50% in coordination of care (as documented) at patient's floor/unit and/or counseling patient: Coding Level of Care Code 43977 INT INP/OBS CARE 3/75MIN Diagnoses Atrial fibrillation with rapid ventricular response I48.91 Hypertension I10 Hyperlipidemia E78.5 Hyperglycemia R73.9
--- NOTE | 2024-09-11 00:03 | XRay Report ---
Exam(s): XR CXR 1 VIEW EXAM: XR Chest, 1 View CLINICAL HISTORY: Reason for exam: Dysrhythmia, new Afib. TECHNIQUE: Frontal view of the chest. COMPARISON: December 22, 2023 FINDINGS: Lungs: Unremarkable. No consolidation. Pleural space: Unremarkable. No pneumothorax. Heart: Unremarkable. No cardiomegaly. Mediastinum: Unremarkable. Normal mediastinal contour. Bones/joints: Unremarkable. No acute fracture. IMPRESSION: Normal chest x-ray. Electronically signed by: Dane Becker MD 09/11/24 00:01 AM
[2024-09-11] MEDS: dilTIAZem HCL 30 MG TAB PO ONE (00:22)
[2024-09-11] MEDS: POTASSIUM CHLORIDE CRTAB 20 MEQ TABCR PO STA (00:22)
[2024-09-11 00:27] VITALS: RESP 18
[2024-09-11] MEDS ORDERED: ACETAMINOPHEN 325 MG TAB PO PRN (01:51)
[2024-09-11 02:17] VITALS: TEMP 98.1; O2SAT 97
[2024-09-11 05:48] LABS: Basophils # (auto) 0.06 K/uL (0.00-0.20); Basophils % (auto) 0.7 %; Eosinophils # (auto) 0.07 K/uL (0.00-0.50); Eosinophils % (auto) 0.9 %; Immature Granulocytes # (auto) 0.04 K/uL (0.01-0.20); Immature Granulocytes % (auto) 0.5 %; Lymphocytes # (auto) 2.46 K/uL (1.20-3.40); Mean Corpuscular Hgb Conc 34.2 g/dL (32.0-36.0); Mean Corpuscular Volume 90.5 fL (80.0-100.0); Mean Platelet Volume 10.6 fL (9.4-12.4); Monocytes # (auto) 0.84 K/uL (0.11-0.59); Monocytes % (auto) 10.2 %; Neutrophils # (auto) 4.74 K/uL (1.40-6.50); Neutrophils % (auto) 57.7 %; Platelet Count 234 K/uL (130-400); RDW Standard Deviation 39.7 fL (36.4-46.3); White Blood Count 8.21 K/ul (4.8-10.8)
[2024-09-11 05:55] LABS: Albumin Level 4.3 gm/dl (3.4-5.0); BUN Creatinine Ratio 26.2 (10-20); Calcium 9.4 mg/dl (8.6-10.3); Chol HDL Ratio 2.5 (0-5); Creatinine Clr Calc Pharmacy 72.6 ml/min; Magnesium 2.3 mg/dl (1.7-2.4); Phosphorus 3.6 mg/dl (2.5-4.9); Potassium 4.3 mmol/L (3.5-5.1)
[2024-09-11 06:03] LABS: ANTI-Xa, UFH(UnfractionatedHep 0.39 IU/ml (0.3-0.7)
[2024-09-11 07:29] LABS: Estimated Average Glucose 108 mg/dl; Hemoglobin A1C 5.4 % (4.5-5.6)
[2024-09-11 08:15] VITALS: BP 148/79
[2024-09-11] MEDS: dilTIAZem HCL 30 MG TAB PO SCH (08:56)
[2024-09-11] MEDS: ROSUVASTATIN CALCIUM 5 MG TAB PO SCH (08:57)
--- NOTE | 2024-09-11 09:55 | Cardiology Consultation ---
Date of Consultation September 11, 2024 Assessment & Plan (1) Atrial fibrillation with rapid ventricular response: (2) Anticoagulant long-term use: (3) Hyperlipidemia: (4) Hypertension: Plan 1. Paroxysmal atrial fibrillation: By symptoms she has had atrial fibrillation for the last year, this is the longest episode she has had and therefore she came into the emergency room where it was documented. She converted spontaneously to sinus rhythm in less than 12 hours. I discussed various approaches with her which include rate control, antiarrhythmic therapy and ablation. At this point my recommendation would be a trial of rate control although she will probably still have a somewhat fast heart rate but she tolerates it relatively well and as long as she feels good with it that was probably acceptable. I would recommend sending her home on long-acting diltiazem 180 mg and we can adjust as an outpatient. Since her blood pressure has often been elevated here I would add this to her regimen. She will need anticoagulation. 2. Anticoagulation: Her [id number] score is 3 currently, but she will be getting another point in a few months for age and should be on an anticoagulant. I discussed this with her and she is agreeable, she is concerned about the cost but she will have to evaluate that with her insurance company. I would recommend Eliquis 5 mg twice a day. Since she was in this rhythm for less than 12 hours it should be safe to stop the heparin and have her start the Eliquis when she gets the prescription filled, probably tomorrow. 3. Hypertension: Often her blood pressure is elevated here and has been in the past as well on our records. She may need better blood pressure control in general so adding diltiazem to her omeprazole is probably the best option. These can be adjusted as an outpatient, I would favor going up on the diltiazem empirically as an outpatient since she will probably need higher doses for heart rate control and atrial fibrillation. 4. Hyperlipidemia: She is on rosuvastatin, I believe 5 mg daily, and her lipid profile here is quite good (total cholesterol 150 with HDL 60, for a non-HDL cholesterol of 90) which is acceptable without documentation of atherosclerosis. I will make arrangements to have her seen in our office in about 1 month. History of Present Illness Reason for Consultation: New onset atrial fibrillation Attending Physician: Michel Damon History of Present Illness This is a 73-year-old woman with a history of hypertension, hyperlipidemia and hyperglycemia on this admission but no other cardiovascular history until recently. She describes feeling a rapid and irregular heart rate periodically for most of 2023, it is relatively infrequent and the symptoms were not lasting very long (a few hours at the most) so they had not been evaluated. She had a prolonged episode and presented with a feeling of an increased heart rate and palpitations occurring around 8 PM on May 10, 2024. She did not have lightheadedness or dizziness, she did not have heart failure symptoms or chest discomfort. In general she is very active and has not had cardiovascular symptoms with activity. An electrocardiogram demonstrated atrial fibrillation with a rapid heart rate of 153 bpm. She was treated with intravenous metoprolol followed by a diltiazem drip as well as oral short acting diltiazem and was placed on heparin. Her arrhythmia terminated at around 7 AM this morning (duration less than 12 hours) and at the time of my evaluation she was feeling well. Her heart rate prior to termination on diltiazem was somewhat elevated, her sinus rate was controlled. High- sensitivity troponin and other laboratory studies were unremarkable. An echocardiogram has been done by her description but has not been read as yet. Allergies Allergy/AdvReac Type Severity Reaction Status Date / Time lisinopril AdvReac Mild COUGH Verified 09/10/24 23:06 oxycodone AdvReac Mild SICK Verified 09/10/24 23:06 Home Medications Medication Instructions Recorded Confirmed Type olmesartan 5 mg tablet 5 mg PO DAILY 07/09/19 09/10/24 History rosuvastatin 10 mg tablet 5 mg PO DAILY 09/06/21 09/10/24 History apixaban 5 mg tablet (Eliquis) 5 mg PO BID #60 tabs 09/11/24 Rx diltiazem HCl 180 mg 180 mg PO DAILY #30 caps 09/11/24 Rx capsule,extended release 24 hr Patient History Medical History (Updated 09/11/24 @ 13:01 by Alban Pina MD) History of anemia Hx of abnormal mammogram Surgical History S/P tonsillectomy and adenoidectomy H/O neck surgery S/P dilation and curettage S/P colonoscopy H/O breast surgery S/P appendectomy Family History Father Diabetes Dyslipidemia Hypertension Myocardial infarction Mother Hypertension Myocardial infarction Sister Hypertension Social History Smoking Status: Unknown if ever smoked Do You Dip or Chew Tobacco: No; Hx Alcohol Use: Yes Alcohol type: wine Hx Substance Use: No Preferred Language: Slovak Communication Ability: Effective Diamond Merchant Required: No Beliefs That Will Affect Care: None Current Living Situation: Spouse Other Information That Helps Us Care for You: No Feels Safe at Home: Yes Safety Concerns: Feels Safe At This Time Assistive Devices: Glasses Assistive Devices Comment: reading glasses Review of Systems Review of Systems: All systems reviewed & are unremarkable except as noted in HPI & below Physical Exam Physical Exam: Constitutional: Alert, cooperative and in no distress. HEENT: Unremarkable Neck: No jugular venous distention, carotid pulses are normal and equal bilaterally without bruits. Pulmonary: Clear to auscultation bilaterally. Cardiac: Regular rhythm with no murmur, gallop or rub. Abdomen: Soft, nontender with normal bowel sounds. Extremities: No edema. Distal pulses intact. Neurologic: No focal findings. Gait is steady. Skin: No rash, ecchymoses or petechiae. Results & Data Vital Signs (Past 12 Hours) Vital Signs Temp Pulse Pulse Resp BP BP Pulse Ox 09/11/24 08:14 36.7 C 72 18 148/79 H 97 09/11/24 01:45 36.7 C 109 H 18 129/88 97 09/11/24 01:23 36.6 C 106 H 18 156/124 H 96 09/11/24 00:00 125 H 18 129/93 98 09/10/24 22:45 123 H 137/106 H 09/10/24 22:20 123 H 120/92 09/10/24 22:17 125 H 120/92 09/10/24 22:02 122 H 120/95 O2 Del Method 09/11/24 08:14 Room Air 09/11/24 01:45 Room Air 09/11/24 01:23 Room Air 09/11/24 00:00 Room Air 09/10/24 22:45 09/10/24 22:20 09/10/24 22:17 09/10/24 22:02 Laboratory Results Cardiac Enzymes 09/10/24 Range/Units 21:05 AST 21 (13-39) U/L Troponin I High Sens 6.0 (0-14) pg/ml Coagulation 09/10/24 Range/Units 21:05 PT 11.4 (9.0-12.0) Seconds APTT 24 (21-31) Seconds Lipids 09/11/24 Range/Units 05:20 Triglycerides 56 (0-150) mg/dl Cholesterol 150 (0-200) mg/dl HDL Cholesterol 60 mg/dl Cholesterol/HDL Ratio 2.5 (0-5) CBC 09/10/24 09/11/24 Range/Units 21:05 05:20 WBC 9.18 8.21 (4.8-10.8) K/ul RBC 4.60 4.20 (4.20-5.40) M/uL Hgb 14.0 13.0 (12.0-16.0) g/dl Hct 41.4 38.0 (37.0-47.0) % Plt Count 245 234 (130-400) K/uL Neut # (Auto) 5.30 4.74 (1.40-6.50) K/uL Lymph # (Auto) 2.61 2.46 (1.20-3.40) K/uL [place] # (Auto) 1.02 H 0.84 H (0.11-0.59) K/uL Eos # (Auto) 0.13 0.07 (0.00-0.50) K/uL Baso # (Auto) 0.09 0.06 (0.00-0.20) K/uL Comprehensive Metabolic Panel 09/10/24 09/11/24 Range/Units 21:05 05:20 Sodium 142 141 (136-145) mmol/L Potassium 3.8 4.3 (3.5-5.1) mmol/L Chloride 108 H 109 H (98-107) mmol/L Carbon Dioxide 25 27 (21-32) mmol/L BUN 20 17 (6-23) mg/dl Creatinine 0.67 0.65 (0.6-1.2) mg/dl Glucose 139 H 109 H (70-99(Fasting)) mg/dl Calcium 10.0 9.4 (8.6-10.3) mg/dl AST 21 (13-39) U/L ALT 15 (7-52) U/L Alkaline Phosphatase 77 (34-104) U/L Total Protein 8.2 (6.0-8.3) gm/dl Albumin 5.1 H 4.3 (3.4-5.0) gm/dl Intake and Output 09/10/24 09/11/24 09/11/24 22:59 06:59 14:59 Intake Total 127.334 / 127.334 Balance 127.334 / 127.334 Intake: IV 127.334 / 127.334 Heparin Sodium/Dextrose 25,000 102.667 / 102.667 units In 500 ml @ 700 UNITS/HR 14 mls/hr IV .Q24H MACHO Rx#: [id number] dilTIAZem HCL 125 mg In 24.667 / 24.667 Dextrose 5% 100 ml @ 5 MG/HR 5 mls/hr IV .Q24H MACHO Rx#: [id number] Other: Other Intake Source sips Weight 69.1 kg 69.3 kg Weight Measurement Method Chair Scale Standing Scale Diagnostic Findings Telemetry: Atrial fibrillation with a somewhat rapid heart rate in total around 7 AM this morning where she terminated to sinus rhythm. No postconversion pauses of significance. PG Care Time/CCT Total # of Minutes Spent Total Time Spent with Patient: Total time spent is greater than 50% in coordination of care (as documented) at patient's floor/unit and/or counseling patient: Coding Level of Care Code 98790 INT INP/OBS CARE 3/75MIN Diagnoses Atrial fibrillation with rapid ventricular response I48.91 Anticoagulant long-term use Z79.01 Hyperlipidemia E78.5 Hypertension I10
[2024-09-11 11:34] VITALS: PULSE 72
--- NOTE | 2024-09-11 11:47 | Electrocardiogram Report ---
Test Reason : Blood Pressure : */* mmHG Vent. Rate : 153 BPM Atrial Rate : * BPM P-R Int : * ms QRS Dur : 80 ms QT Int : 284 ms P-R-T Axes : * 44 68 degrees QTcB Int : 453 ms Atrial fibrillation with rapid ventricular response Marked ST abnormality, possible inferior subendocardial injury Abnormal ECG When compared with ECG of 22-Dec-2023 22:35, Atrial fibrillation has replaced Sinus rhythm Vent. rate has increased by [address] now depressed in Inferior leads Confirmed by Alban Pina ([id number]) on 09/11/2024 11:46:48 AM Referred By: REFERRED SELF Confirmed By: Alban Pina
--- OUTSIDE RECORDS SUMMARY | 2024-09-11 12:15 | External Medical Summary | Continuity of Care Document ---
Author Name Unknown Organization [address] Address [address] [place], [place] [id number] Care Team Providers Care Checkroom Attendant Name Role Phone SamJulius langford Primary Care Physician [phone] Encounter [facility] [id number] Date(s): 05/21/24 - 05/21/24 [address] [place] [address] [phone] Encounter Diagnosis HYPERTENSION.(Discharge Diagnosis) - 05/23/24 Discharge Disposition: Home or Self Care Attending Physician: REBECCA Dwyer Danielle B Referring Physician: REBECCA Dwyer Danielle B Allergies, Adverse Reactions, Alerts Substance Criticality Severity Reaction Reaction Severity Status lisinopril cough Active Percocet vomiting Active Assessment and Plan Extracted from: Title:Office Visit Note Author:REBECCA Dwyer Dan ielle B Date:05/21/24 1.HYPERTENSION. BP in office today 168/100 and patient states she has white coat syndrome. Home readings 120-130/70-80. Patient decreased olmesartan from 40mg daily to 20mg daily 04/21 on her own due to not feeling well on higher dose. Patient wants to continue with lower dose only. Patient is aware of risks and consequences of persistently high BP. -Encouraged to keep follow up appointment with [facility] scheduled. Sooner if questions or concerns. -Patient verbalizes understanding regarding plan ofcare and all questions answered. Immunizations Given and Recorded Vaccine Date Status Refusal Reason tetanus/diphtheria/pertuss, acel (Tdap) 10/18/23 G iven tetanus/diphtheria/pertuss, acel (Tdap) 05/06/14 G iven influenza virus vaccine, inactivated 07/15/22 Eitan rded influenza virus vaccine, inactivated 07/14/21 Eitan rded influenza virus vaccine, inactivated 07/10/20 Eitan rded influenza virus vaccine, inactivated 08/19/19 Eitan rded influenza virus vaccine, inactivated 08/30/17 Give n influenza virus vaccine, inactivated 08/24/16 Give n influenza virus vaccine, inactivated 08/19/15 Give n influenza virus vaccine, inactivated 07/22/14 Give n SARS-CoV-2 (COVID-19) mRNA BNT-162b2 vax 08/02/21 Recorded SARS-CoV-2 (COVID-19) mRNA BNT-162b2 vax 1 12/16/20 Recorded SARS-CoV-2 (COVID-19) mRNA BNT-162b2 vax 2 11/25/20 Recorded zoster vaccine, inactivated 09/16/19 Recorded zoster vaccine, inactivated 07/18/19 Recorded zoster vaccine live 01/01/17 Recorded pneumococcal 23-valent vaccine 05/16/16 Given pneumococcal 13-valent vaccine 05/03/15 Given tetanus toxoids-diphtheria, Td (Adult) 03/19/03 Re corded 1Result Comment: 2021-02-07: Historical information-source unspecified 2Result Comment: 2021-02-07: Historical information-source unspecified Medications Caltrate 600 + D oral tablet Start: 06/01/17 9:26:00 AM EDT, See Instructions, Disp# 200 tab, 1 tab daily, other Start Date: 06/01/17 Status: Ordered Crestor 10 mg oral tablet Start: 10/18/23 1:59:00 PM EST, See Instructions, Disp# 45 tab, Refills: 3, 1/2 tab PO Daily, Pharmacy: [facility] #[id number] Start Date: 10/18/23 Status: Ordered Ocuvite Adult 50+ oral capsule Start: 09/21/22 9:13:00 AM EST, See Instructions, 1 tab po daily Start Date: 09/21/22 Status: Ordered olmesartan 20 mg oral tablet Start: 05/21/24 10:54:00 AM EDT, 1 tab, PO, Daily Start Date: 05/21/24 Status: Ordered propranolol 10 mg oral tablet Start: 01/25/24 2:23:00 PM EDT, 1 tab, PO, Daily, Disp# 30 tab, Pharmacy: [facility] #[id number] Start Date: 01/25/24 Status: Ordered Suprep Bowel Prep Kit oral liquid Start: 04/28/24 2:13:00 PM EDT, See Instructions, Disp# 354 mL, Refills: 0, Take as directed., Pharmacy: [facility]/pharmacy #[id number] Start Date: 04/28/24 Status: Ordered Zofran 4 mg oral tablet Start: 04/28/24 2:13:00 PM EDT, See Instructions, Disp# 3 tab, Refills: 0, May take 1 tablet 30 minutes before colonoscopy prep drink as needed for nausea/vomiting., PRN: as needed for nausea/vomiting, Pharmacy: [facility]/pharmacy #[id number] Start Date: 04/28/24 Status: Ordered Mental Status 05/21/24 Barriers to Learning one year None evide nt Mandatory Health Literacy Documentation Yes Health Literacy Communication Barriers N ever Primary Language Malay Problem List Condition Confirmation Course Effective Dates Status Health St atus Informant Hyperlipemia Confirmed Active HYPERTENSION. Confirmed Active Osteopenia 1 Confirmed Active Weight disorder Confirmed Active 1Dexa in 2015: T score -2.2 Diagnosis Diagnosis Type Effective Dates Health Status Cl inical Service Informant HYPERTENSION. Discharge Diagnosis 05/23/24 Non-Specified Procedures Procedure Date Related Diagnosis Body Site Status Colonoscopy 1, 2 05/06/24 Complete d Diagnostic mammogram 3 04/03/23 Co mpleted Bone density finding 4 08/10/20 Co mpleted Mammogram - screening 5 03/25/20 C ompleted Mammogram 6 02/20/19 Completed Mammogram - screening 7 03/16/18 C ompleted Bone density finding 8 07/24/17 Co mpleted Procedure 9 05/15/17 Completed Mammogram 10 02/28/16 Completed Bone density scan 11 06/29/15 Comp leted Colonoscopy 12, 13, 14 08/15/14 Co mpleted Appendectomy 04/11/14 Completed Mammogram - screening 15 03/10/14 Completed 1- Repeat colonoscopy in 10 years for screening purposes. 2- The rectum, sigmoid colon, descending colon, splenic flexure, transverse colon, hepatic flexure, ascending colon, cecum and recto-sigmoid colon are normal. - No specimens collected. 3IMPRESSION: ACR BI-RADS CATEGORY 1: NEGATIVE There is no mammographic evidence of malignancy. A 1 year screening mammogram is recommended (04-03-2024). The patient will receive written notification of the results. 4AP Spine Osteopenia -2.2 Dual Femur Osteopenia -4.1 10-Year Probability of Fracture = 9.7% Hip = 1.3% Population [place] 5There is no mammographic evidence of malignancy. A 1 year screening mammogram is recommended. The patient will receive written notification of the results. 6IMPRESSION:ACR BI-RADS CATEGORY 2: BENIGN There is no mammographic evidence of malignancy. A 1 year screening mammogram is recommended. 7there is no mammographic eidence of malignancy. A 1 year screening mammogram is recommended the patient will receive written notification of the results. 8-2.2 9Benign papilloma removed from right breast. 10normal 11T-Score= -2.2 1211/2014: normal 1311/2015: normal 1411/85315: normal 151 yr screening is recommended Vital Signs Most recent to oldest [Reference Range]: 1 Patient Weight 67.8 kg (05/21/24 10:14 AM) Heart Rate 68 bpm (05/21/24 10:14 AM) Blood Pressure 168/100mmHg (05/21/24 10:14 AM) Cuff Pulse Pressure 68 mmHg (05/21/24 10:14 AM) Social History Social History Type Response Smoking Status Never smoked cigaret tanya Sex Female Sex Representation Female (finding) FCM Outpt Note * REBECCA Dwyer Danielle B: PERFORM Event Display: FCM Outpt Note Authored Date: Chief Complaint 3 month f/u HTN History of Present Illness Patient is a 73 year old female here for 3mth BP check. Patient states she decreased olmesartan to 20mg daily on her own 04/21 due to generally "not feeling right" on 40mg daily. Since then, home BP readings 120-140/70-80. Denies headache, vision changes, edema, chest pain, shortness of breath. Review of Systems Negative unless stated in HPI. Physical Exam Vitals & Measurements HR:68(Monitored) BP:168/100 SpO2:98% WT:67.8kg WT:67.800kg(Dosing) CONSTITUTIONAL: Well-developed, well nourished. No acute distress. NEUROLOGICAL: Patient alert, orientated, memory intact. Gait steady. LUNGS: Respirations even and unlabored, chest expansion symmetrical. Lung sounds clear in all lobes, no wheezing, crackles, or adventitious breath sounds. HEART: Rate and rhythm regular. No cardiac murmur, click, or rub noted. MUSCULOSKELETAL/EXTREMITIES: Extremities are intact, no redness or edema noted of upper or lower extremity. INTEGUMENTARY: Skindry, warm to touch. No rash, wounds, lesions noted on visible skin. PSYCHOSOCIAL: Calm and cooperative, interacts appropriately withstaff. Assessment/Plan 1.HYPERTENSION. BP in office today 168/100 and patient states she has white coat syndrome. Home readings 120-130/70-80. Patient decreased olmesartan from 40mg daily to 20mg daily 04/21 on her own due to not feeling well on higher dose. Patient wants to continue with lower dose only. Patient is aware of risks and consequences of persistently high BP. -Encouraged to keep follow up appointment with [facility] scheduled. Sooner if questions or concerns. -Patient verbalizes understanding regarding plan ofcare and all questions answered. Problem List/Past Medical History Ongoing Hyperlipemia HYPERTENSION. Osteopenia Weight disorder Procedure/Surgical History Colonoscopy| Service Date: 4Diagnostic mammogram| Service Date: 3Bone density finding| Service Date: 08/10/2020Mammogram - screening| Service Date: 03/25/2020Mammogram| Service Date: 02/20/2019Mammogram - screening| Service Date: 03/16/2018Bone density finding| Service Date: 07/24/2017Procedure| Service Date: 05/15/2017Mammogram| Service Date: 02/28/2016Bone density scan| Service Date: 06/29/2015Colonoscopy| Service Date: 08/15/2014ppendectomy| Service Date: 04/11/2014Mammogram - screening| Service Date: 03/10/2014 Medications calcium-vitamin D(Caltrate 600 + D oral tablet), See Instructions magnesium sulfate/potassium sulfate/sodium sulfate(Suprep Bowel Prep Kit oral liquid), See Instructions multivitamin with minerals(Ocuvite Adult 50+ oral capsule), See Instructions olmesartan(olmesartan 20 mg oral tablet), 20 mg= 1 tab, PO, Daily ondansetron(Zofran 4 mg oral tablet), See Instructions, PRN propranolol(propranolol 10 mg oral tablet), 10 mg= 1 tab, PO, Daily rosuvastatin(Crestor 10 mg oral tablet), See Instructions, 3 refills Allergies Percocetvomiting lisinoprilcough Social History Smoking Status Never smoked cigarettes Alcohol - Low Risk Exercise - Regular exercise Exercise type:Walking, Weight lifting Tobacco - Denies Tobacco Use Family History Diabetes mellitus: Father. Heart disease: Mother and Father. Hypertension: Mother, Father and Sister. Macular degeneration of both eyes: Father. Health Status Family Member(s) Immunizations Vaccine Date Status tetanus/diphtheria/pertuss, acel (Tdap) 10/18/2023 Given influenza virus vaccine, inactivated 07/2022 Recorded SARS-CoV-2 (COVID-19) mRNA BNT-162b2 vax 08/02/2021 Recorded influenza virus vaccine, inactivated 07/14/2021 Recorded SARS-CoV-2 (COVID-19) mRNA BNT-162b2 vax 12/16/2020 Recorded Comments : 2021-02-07: Historical information-source unspecified SARS-CoV-2 (COVID-19) mRNA BNT-162b2 vax 11/25/2020 Recorded Comments : 2021-02-07: Historical information-source unspecified influenza virus vaccine, inactivated 07/10/2020 Recorded zoster vaccine, inactivated 09/16/2019 Recorded influenza virus vaccine, inactivated 08/19/2019 Recorded zoster vaccine, inactivated 07/18/2019 Recorded influenza virus vaccine, inactivated 08/30/2017 Given zoster vaccine live 01/01/2017 Recorded influenza virus vaccine, inactivated 08/24/2016 Given pneumococcal 23-valent vaccine 05/16/2016 Given influenza virus vaccine, inactivated 08/19/2015 Given pneumococcal 13-valent vaccine 05/03/2015 Given influenza virus vaccine, inactivated 07/22/2014 Given tetanus/diphtheria/pertuss, acel (Tdap) 05/06/2014 Given tetanus toxoids-diphtheria, Td (Adult) 03/19/2003 Recorded Recommendations Health Maintenance Pending(in the next year) OverDue Medicare Annual Wellness Visit due09/21/23and every 1year Adult Influenza Vaccine due04/13/24and every 1year Due Adult COVID-19 Vaccination due05/23/24Unknown Frequency Adult Social Determinants of Health Screening due05/23/24Unknown Frequency Due In Future Body Mass Index not due until05/22/25and every Satisfied(in the past 1 year) Satisfied Adult Tdap/Td Vaccine on10/18/23.Satisfied by RAFAEL Wolfe, Hattie Body Mass Index on10/18/23.Satisfied by SERA Poole, Kenisha Breast Cancer Screening on04/10/24.Satisfied by DANIEL Clement Lynnae Lipid Screening on10/01/23.Satisfied by Contributor_system, [employer] Electronic Signature on File Electronically Reviewed/Signed by: REBECCA Cohen Author Signature Dt/Tm:05/23/2024 09:00 AM Family Medicine Electronically Reviewed/Signed by: Julius Vargas MD Cosigner Signature Dt/Tm: 05/23/2024 02:33 PM Department of Family Medicine DBN Patient Care team information Care Team Personnel Name: DO Maradiaga Kristen M Position: Physician - Family Med Member Role: Lifetime Relationship Address: [address] [place] [id number] [place] Name: MD Vargas Juan Position: Physician - Family Med Member Role: Primary Care Provider [address]: [address] [place] [address] [place] Care Team Related Persons Name: DILAN KAMINSKI
[2024-09-11] MEDS: APIXABAN 5 MG TABLET PO ONE (12:52)
--- NOTE | 2024-09-11 15:45 | Discharge Summary ---
Discharge Summary Date of Service September 11, 2024 Principal Dx & Hospital Course #1 = Principal Diagnosis (1) Atrial fibrillation with rapid ventricular response: (2) Hypertension: (3) Hyperlipidemia: (4) Hyperglycemia: Plan Atrial fibrillation with RVR/hypertension- The patient will be admitted to telemetry for serial cardiac enzymes, serial EKG's, cardiac rhythm monitoring and a 2-D echocardiogram with Dopplers. Status post Lopressor 5 mg IV x 3 from the ED with no significant improvement Then placed on Cardizem drip per protocol Cardizem 30 mg p.o. now, and then 4 times daily; Consulted Cardiology: WIll transition to Eliquis and cardizem extended release. Patient returned to sinus rhythm and she wa slikely in A. fib for less than 24 hours. Hold olmesartan Consult cardiology Hyperglycemia- Glucose 139 on admission Hyperlipidemia- Continue rosuvastatin 5 mg daily Admission HPI Per Admitting Provider The patient is a 73-year-old female with a past medical history including hypertension and hyperlipidemia, who reports having had a few episodes of brief palpitations of a few seconds duration in the past. She reports that about 1 hour prior to arrival, she had the acute onset of persistent palpitations, and presents to the ED for assessment. EKG upon arrival showed atrial fibrillation with RVR at a rate 153 bpm. She denies any recent travels or sick exposures. She denies any change in her usual dietary intake. Discharge Exam The patient is awake, alert and oriented 3. HEENT--PERRL, EOMI, mucous membranes and oropharynx normal Neck--supple. No JVD. No bruits. Thyroid normal, trachea midline, no adenopathy. Heart--irregularly irregular and tachycardic. No murmurs, rubs or gallops. Lungs--clear bilaterally, no respiratory distress, no accessory muscle use. Abdomen--normal bowel sounds and soft. Nontender. Nondistended, no hernias or masses, no organomegaly. Extremities--No edema. Dermatologic--normal skin turgor, normal color, no abnormal lymph nodes, no rash. Neurologic--cranial nerves II through XII grossly intact. Rheumatologic--normal range of motion. Psychiatric--normal affect. Discharge Plan Discharge Items Patient Disposition: Home - Self-Care Reason For Visit: NEW ONSET ATRIAL FIB WITH RVR Discharge Diagnosis: New Onset Atrial fib with RVR Activity: Resume your previous activity Non-emergency contact: Primary Care Provider Call non-emergency contact if: you have any medication questions Follow-up/Referrals: Julius Vargas MD [Primary Care Provider] - Diet: Regular Addtl Attending Provider Instructions: Followup with PCP in 1-2 weeks. Recommend followup with Cardiology, Dr. Pina within 1 month. Pending Studies at Discharge: No Stand-Alone Forms: My [facility] [employer], Smoking Cessation Medications and DC Order Prescriptions: New diltiazem HCl 180 mg capsule,extended release 24hr 180 mg PO DAILY Qty: 30 0RF Rx Instructions: Start in the morning on 09/12 Eliquis 5 mg tablet 5 mg PO BID Qty: 60 0RF Rx Instructions: Take first dose tomorrow in the morning. Continued rosuvastatin 10 mg tablet 5 mg PO DAILY Held olmesartan 5 mg tablet 5 mg PO DAILY Hold Instructions: Resume on 09/18/24. hold until followup with PCP. Discharge Orders: Discharge Order (Routine); Ordered 09/11/24 Ordered By: Michel Perez/Other Patient Handouts: Identifying Your Heart Risks, AFib Admission Data Admit Date/Time: 09/10/24 23:57 Attending Provider: Michel Damon Admit Provider: Jan Rebolledo Primary Care Provider: Julius Vargas Other Providers: Alban Pina Other Interventions: Discharge Summary Assessment (RN) Last Done: 09/11/24 11:33 Hospital Stay Data Consultations 09/10/24 23:09 ED Decision to Admit Stat 09/11/24 01:51 Consult Cardiology Routine Pending Results Patient Have Any Pending Studies at Discharge: No Discharge Instructions Given to Patient (Per Discharging Provider) Followup with PCP in 1-2 weeks. Recommend followup with Cardiology, Dr. Pina within 1 month. Total Time Total Time Spent Total Time Spent (In Minutes): 32 Coding Level of Care Code 50514 INP/OBS DISCH >30 MIN Diagnoses Atrial fibrillation with rapid ventricular response I48.91 Hypertension I10 Hyperlipidemia E78.5 Hyperglycemia R73.9
--- NOTE | 2024-09-12 10:40 | XCELERA ---
[id number]
== END 2024-09-11 12:58 | disposition home or self-care (01) ==
LOC: ED 20:50 → 2S 20:50 → SUATTDRO 23:57 → 2S 09-11 01:23
DX: R73.9 Hyperglycemia, unspecified; Z88.8 Allergy status to other drugs, medicaments and biological substances; Z79.01 Long term (current) use of anticoagulants; I48.0 Paroxysmal atrial fibrillation; Z88.6 Allergy status to analgesic agent; Z11.52 Encounter for screening for COVID-19; E78.5 Hyperlipidemia, unspecified; Z82.49 Family history of ischemic heart disease and other diseases of the circulatory system; Z79.899 Other long term (current) drug therapy; I10 Essential (primary) hypertension